=== PATIENT | male | born 1980 | race Caucasian/White ===

== ENCOUNTER 2019-03-09 19:23 | Emergency (ER) | payer MEDICAID ==
[~2019-03-09] VITALS: Ht 180.3 cm; Wt 65.4 kg
[2019-03-09 19:30] VITALS: BP 105/82
[2019-03-09] MEDS ORDERED: NAPR-56 PO (20:13)
[2019-03-09] MEDS ORDERED: PENI250T2 PO (20:13)
== END 2019-03-09 20:24 | disposition home or self-care (01) ==
LOC: ER 19:24
DX: K04.7 Periapical abscess without sinus (principal); Z88.7 Allergy status to serum and vaccine
CPT/HCPCS: 99283

== ENCOUNTER 2024-08-12 20:45 | Emergency (ER) | payer MEDICAID ==
[~2024-08-12] VITALS: Ht 180.3 cm; Wt 68.2 kg
[2024-08-12] MEDS: normal saline 1000ml 1,000 ML IV ONE (21:03)
[2024-08-12 21:07] LABS: BASOPHILS # (AUTO) 0.1 X10'3 (0-0.2); BASOPHILS % (AUTO) 0.9 % (0-1); EOSINOPHILS # (AUTO) 0.7 X10'3 (0-0.9); HEMATOCRIT 46.6 % (42.0-52.0); HEMOGLOBIN 15.8 g/dl (14.0-17.9); LYMPHOCYTES # (AUTO) 3.4 X10'3 (1.1-4.8); LYMPHOCYTES % (AUTO) 39.9 % (21-51); MEAN CORPUSCULAR HEMOGLOBIN 31.4 PG (27.0-31.0); MEAN CORPUSCULAR HGB CONC 33.8 g/dL (33.0-36.5); MEAN CORPUSCULAR VOLUME 92.7 FL (78-98); MEAN PLATELET VOLUME 8.9 FL (7.4-10.4); MONOCYTES # (AUTO) 0.5 X10'3 (0-0.9); MONOCYTES % (AUTO) 6.2 % (2-12); NEUTROPHILS # (AUTO) 3.8 X10'3 (1.8-7.7); PLATELET COUNT 183 X10'3 (140-440); RED BLOOD COUNT 5.03 X10'6 (4.70-6.10); RED CELL DISTRIBUTION WIDTH 13.4 % (11.5-14.5); WHITE BLOOD COUNT 8.4 X10'3 (4.5-11.0)
[2024-08-12 21:24] LABS: ALANINE AMINOTRANSFERASE 28 U/L (12-78); ALBUMIN 3.6 G/DL (3.4-5.0); ALKALINE PHOSPHATASE 74 IU/L (46-116); ANION GAP 7 (8-16); ASPARTATE AMINO TRANSFERASE 16 U/L (10-37); BILIRUBIN,TOTAL 0.2 MG/DL (0.1-1.0); BLOOD UREA NITROGEN 9 MG/DL (7-18); CALCIUM 8.4 MG/DL (8.5-10.1); CHLORIDE 107 MMOL/L (99-107); CREATININE 0.82 MG/DL (0.60-1.10); GLUCOSE 107 MG/DL (70-104); SODIUM 142 MMOL/L (135-145); TOTAL CARBON DIOXIDE 27.8 MMOL/L (24-32); TOTAL PROTEIN 7.2 G/DL (6.4-8.2); eCRCL 113 ML/MIN; eGFR > 90 ML/MIN
[2024-08-12 21:32] LABS: MAGNESIUM 2.1 MG/DL (1.5-2.4); PRO BRAIN NATRIURETIC PEPTIDE < 30 PG/ML (0-125)
[2024-08-12] MEDS: potassium Cl 20 mEq SR tablet PO ONE (21:47)
[2024-08-12 22:34] VITALS: BP 114/76; PULSE 80; RESP 16; TEMP 97.6; O2SAT 100
== END 2024-08-12 22:37 | disposition home or self-care (01) ==
LOC: ER 20:46
DX: R55 Syncope and collapse (principal); R06.02 Shortness of breath; Z88.7 Allergy status to serum and vaccine
CPT/HCPCS: 36415; 71045; 80053; 82948; 83735; 83880; 84484; 85025; 93005; 96360; 99285; J7030